=== PATIENT | male | born 1955 | race Caucasian/White ===

== ENCOUNTER 2024-01-03 13:46 | Emergency (ER) | payer MEDICARE ==
[2024-01-03] MEDS ORDERED: Dicyclomine 20 MG/2 ML VIAL ONE (14:23)
[2024-01-03] MEDS ORDERED: Ondansetron PF 4 MG/2 ML Vial ONE (14:23)
[2024-01-03 14:35] LABS: #Basophils 0.02 10x3/uL (0.0-0.2); #Eosinophils 0.08 10x3/uL (0.0-0.5); #Monocytes 0.33 10x3/uL (0.0-1.1); #Neutrophils 7.69 10x3/uL (1.5-8.4); %Basophils 0.2 % (0.0-2.0); %Lymphocytes 3.2 % (18.0-47.0); %Monocytes 3.9 % (0.0-10.0); %Neutrophils 91.6 % (40.0-75.0); Hematocrit 47.7 % (38.8-50.0); Hemoglobin 16.3 g/dL (13.5-17.5); Mean Corpuscular HGB CONC 34.2 g/dL (32.0-36.0); Mean Corpuscular Hemoglobin 30.5 pg (27.0-33.0); Mean Corpuscular Volume 89.2 fL (81.2-95.1); Platelet Count 173 10x3/uL (150-450); RBC Distribution Width 12.8 % (11.5-14.5); Red Blood Cell (RBC) Count 5.35 10x6/uL (4.32-5.72); White Blood Cell (WBC) Count 8.4 10x3/uL (3.5-10.5)
[2024-01-03 14:46] LABS: ALT (SGPT) 23 U/L (8-55); AST (SGOT) 19 U/L (5-34); Albumin 4.1 g/dL (3.4-4.8); Alkaline Phosphatase 63 U/L (40-110); Anion Gap 15 mmol/L (10-20); BUN (Urea Nitrogen) 26 mg/dL (8.4-25.7); Bilirubin, Total 0.8 mg/dL (0.2-1.2); Calc. Creatinine Clearance 0 mL/min (70-130); Calcium 9.4 mg/dL (7.8-10.44); Carbon Dioxide 25 mmol/L (23-31); Chloride 102 mmol/L (98-107); Estimated GFR 81; Glucose 140 mg/dL (80-115); Lipase 15 U/L (8-78); Potassium 4.1 mmol/L (3.5-5.1); Protein, Total 7.1 g/dL (5.8-8.1); Sodium 138 mmol/L (136-145)
== END 2024-01-03 17:01 | disposition home or self-care (01) ==
LOC: CSHERS 13:46
DX: A08.4 Viral intestinal infection, unspecified (principal); B97.89 Other viral agents as the cause of diseases classified elsewhere
CPT/HCPCS: 80053; 83690; 85025; 87428; 93005; J2405; 96372; 96374